=== PATIENT | female | born 1975 | race Caucasian/White ===

== ENCOUNTER 2024-04-29 09:01 | Emergency (ER) | payer OTHER ==
[~2024-04-29] VITALS: Ht 162.6 cm; Wt 73.8 kg
[2024-04-29] MEDS ORDERED: KETOROLAC TROMETHAMINE 60 MG/2 ML VIAL IM ONE (09:45)
[2024-04-29] MEDS ORDERED: KETOROLAC TROME10 MG PO (11:07)
[2024-04-29 11:35] VITALS: BP 125/57
== END 2024-04-29 11:30 | disposition home or self-care (01) ==
LOC: ED 09:01
DX: M75.32 Calcific tendinitis of left shoulder (principal)
CPT/HCPCS: 73030; 96372; 99283-25; J1885